=== PATIENT | female | born 1930 | race Caucasian/White ===

== ENCOUNTER 2016-09-28 10:11 | Outpatient (CLI) | payer OTHER ==
--- NOTE | 2016-10-01 13:50 | OP Clinic Progress Note ---
Dear Dr. Dennis: REASON FOR VISIT: I had the pleasure of seeing Suha Floyd on follow up. She did do physical therapy and it helped her back. She has good days and bad days; however, overall, notes marked improvement. She, however, continues to take 10 mg of prednisone a day and that is mainly for her back pain. She has a lot of morning stiffness as she points to the lower back and SI region. Her hands and feet have been doing well except for at the base of the thumbs. Occasionally, her hands will cramp when she is knitting or doing other activities. FAMILY HISTORY: Family history of rheumatoid arthritis. SOCIAL HISTORY: No smoking. No drinking. PAST MEDICAL HISTORY: 1. Rheumatoid arthritis. 2. Varicose veins. 3. Hypertension. 4. Glaucoma. PRESENT MEDICATIONS: 1. Amlodipine 10 mg daily. 2. Diclofenac 100 mg daily as needed. 3. Lorazepam 0.5 mg twice a day as needed. 4. Losartan 50 mg daily. 5. Metoprolol 50 mg daily. 6. Prednisone 10 mg daily. REVIEW OF SYSTEMS: No new medical problems and no fevers, chills, sweats, chest pain, shortness of breath, cough, or wheezing. She continues to have occasional vertigo and anxiety and some difficulty sleeping. Her pain is maybe 5 over 10 at present. She has not had any recurrence of her right knee pain or swelling. PHYSICAL EXAMINATION: GENERAL: She looks well. VITAL SIGNS: Height: 5 feet 4 inches. Weight: 168. T: 97.2, R: 12, heart rate: 56, BP: 178/71. HEENT: Unremarkable. No stomatitis or glossitis. LUNGS: Clear with no crackles or wheezing. HEART: Regular and rate and rhythm. ABDOMEN: Soft and nontender. VASCULAR: No edema or cyanosis. JOINTS: DIPs, PIPs, MCPs with no synovitis or tenderness. CMC squaring bilaterally with a little tenderness on palpation of his CMC joint. Elbows, shoulders, hips, knees, ankles, and feet are unremarkable. RADIOLOGY STUDIES: Lumbar spine films showed retrolisthesis of L3 on L4 and some degenerative disk changes. X-rays of the hands showed MCP narrowing and a small erosion bilaterally consistent with her diagnosis of rheumatoid arthritis. LABORATORY STUDIES: Rheumatoid factor was negative. Sedimentation rate was normal. CBC and CMP are unremarkable. LIBBY was negative. IMPRESSION AND PLAN: 1. Rheumatoid arthritis, seronegative, multiple sites, inactive or "burned out." 2. Low back pain with lumbar spondylosis and retrolisthesis. I have asked her to continue her exercises at home. 3. Chronic steroid therapy. We are decreasing her prednisone to 5 mg once a day, and I will reevaluate the patient in 3 months. She is to return immediately if her symptoms reoccur or if she develops any tenderness, swelling , stiffness of her hands or feet. 4. Finally, we will proceed with a DEXA scan for osteoporosis screening. Thank you very much for the opportunity to take care of your patient. Best regards, cc: Dr. Pedro Dennis Enclosure: DEXA scan report MTDD
== END 2016-09-28 13:49 ==
LOC: RHEU 10:11
PROVIDERS: ATTEND Internal Medicine
DX: M54.5 Low back pain (principal); M06.09 Rheumatoid arthritis without rheumatoid factor, multiple sites
CPT/HCPCS: G0463

== ENCOUNTER 2016-10-02 10:10 | Outpatient (CLI) | payer OTHER | END 2016-10-02 12:38 | LOC: RAD 10:10 | PROVIDERS: ATTEND Internal Medicine | DX: M81.0 Age-related osteoporosis without current pathological fracture (principal) | CPT/HCPCS: 77080 ==

== ENCOUNTER 2016-12-28 10:13 | Outpatient (CLI) | payer OTHER ==
--- NOTE | 2016-12-28 14:06 | OP Clinic Progress Note ---
REASON FOR VISIT: Suha Floyd returns for follow up on her history of seronegative rheumatoid arthritis. I first met her in July and saw her again in September. At that time, I felt that her rheumatoid arthritis was "burned out" or "inactive." She has decreased her prednisone from 10 mg daily to 5 mg daily. With this, she does not have any significant joint pain or swelling of her hands, wrists, or feet. She does get occasional pain in her knee. Her back pain continues to be an issue. She did improve with physical therapy. Let's recall that in July, her rheumatoid factor was negative. CCP was negative. LIBBY was less than 1:80. Sedimentation rate was 3. Lumbar spine x- ray showed spondylosis and retrolisthesis at L2 and L3. Hands and wrists showed changes of osteoarthritis and some joint space narrowing at the MCPs but no overt erosions. FAMILY HISTORY: Maternal grandmother had rheumatoid arthritis. PAST MEDICAL HISTORY: 1. Rheumatoid arthritis. 2. Varicose veins. 3. Hypertension. 4. Glaucoma. PRESENT MEDICATIONS: 1. Amlodipine 10 mg daily. 2. Diclofenac 100 mg as needed. 3. Lorazepam 0.5 mg twice a day. 4. Losartan 50 mg daily. 5. Metoprolol 50 mg daily. 6. Prednisone 5 mg daily. REVIEW OF SYSTEMS: No fevers, chills, sweats, chest pain, shortness of breath, cough, wheezing, nausea, vomiting, or diarrhea. PHYSICAL EXAMINATION: GENERAL: On exam, she looks well. VITAL SIGNS: Height: 5 feet 4 inches. Weight: 168. T: 96.9, R: 18, heart rate 60, BP: 148/63. HEENT: Sclerae are anicteric. Conjunctivae are pink. No stomatitis or glossitis. LUNGS: Clear. HEART: Regular rhythm. ABDOMEN: Soft. VASCULAR: No edema or cyanosis. PERIPHERAL JOINTS: The DIPs and PIPs show changes of OA. No synovitis at the MCPs, wrists, elbows, shoulders, hips, knees, ankles, and feet. IMPRESSION: 1. Seronegative rheumatoid arthritis, in remission. 2. Low back pain due to lumbar spondylosis with no radiculopathy. PLAN: 1. Continue exercises at home. 2. Decrease prednisone to 2.5 mg daily for 4 weeks and then stop it. Thank you very much. cc: Dr. Pedro ERAZO
== END 2016-12-28 10:14 ==
LOC: RHEU 10:13
PROVIDERS: ATTEND Internal Medicine
DX: M05.9 Rheumatoid arthritis with rheumatoid factor, unspecified (principal); M54.5 Low back pain
CPT/HCPCS: G0463

== ENCOUNTER 2017-02-14 12:57 | Outpatient (CLI) | payer OTHER ==
--- NOTE | 2017-02-14 15:16 | Diagnostic Imaging Report ---
BHAVYA العلي [facility] [address] [facility].[address] [id number] Report Submission Date: Feb 14, 2017 1:54:07 PM CDT Patient Study Name: JUANA MERIDA Date: Feb 14, 2017 12:18:01 PM CDT Modality Type: US Gender: F Description: UNILAT LTD STDY EXT VEINS : 34 Institution: [facility] Physician: BHAVYA العلي Examination: Ultrasound vein History: Leg discomfort Findings: Sonographic evaluation of the left lower extremity venous system from the groin to the popliteal fossa inclusive. Normal compressibility. No luminal filling defect. Normal waveforms and response to augmentation. No popliteal region fluid collection. Impression: No evidence for deep venous thrombosis. Electronically signed on Feb 14, 2017 1:54:07 PM CDT by: Sanya ERAZO
== END 2017-02-14 13:00 ==
LOC: RAD 12:57
PROVIDERS: ATTEND Family Medicine
DX: R60.9 Edema, unspecified (principal)
CPT/HCPCS: 93971